=== PATIENT | female | born 1985 | race Caucasian/White ===

== ENCOUNTER 2025-07-23 17:35 | Emergency (ER) | payer OTHER, SELFPAY ==
--- OUTSIDE RECORDS SUMMARY | 2025-07-21 23:51 | XMS_ITS | Encounter Summary ---
Author Organization [facility] 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 Primary Care Provide r Reason for Visit * ReasonCommentsflu like symptomsAbdominal PainUpper abd pain, n/v/d, dx with flu yesterday Encounter Details DateTypeDepartmentCare Team (Latest Contact Info)Dinozgugivo82/27/2025 11:51 PM EST - 07/22/2025 3:29 AM [facility] [address] [place] [address] Reina Ace S, DO [address] [place] [address] Flu (Primary Dx) Discharge Disposition: Home or Self Care Social History Tobacco UseTypesPacks/DayYears UsedDateSmoking Tobacco: FormerCigarettes Tobacco Cessation:Counseling Given: Not Answered Alcohol UseStandard Drinks/WeekCommentsNot Currently0 (1 standard drink = 0.6 oz pure alcohol)AUDIT-CAnswerDate RecordedQ1: How often do you have a drink containing alcohol?Never07/21/2025Q2: How many drinks containing alcohol do you have on a typical day when you are drinking?Patient does not drink07/21/2025Q3: How often do you have six or more drinks on one occasion?Never07/21/2025 Interpersonal Safety Domain Source: IP Abuse ScreeningAnswerDate Recorded Physical cuonrDzjygq69/27/2025Verbal ozenbWgltkn36/27/2025Emotional abuseDenies 07/21/2025Financial tunxrJaotak39/27/2025Sexual gbxnsRyjure85/27/2025 CommentsNoSex and Gender InformationValueDate RecordedSex Assigned at BirthNot on fileLegal RwxOotxtz87/10/2013 6:02 PM ESTGender IdentityNot on fileSexual OrientationNot on filedocumented as of this encounter Last Filed Vital Signs Vital SignReadingTime TakenCommentsBlood Quiqpcso301/8307/22/2025 3:15 AM EST Efifi000907/22/2025 3:15 AM OCIWrqaujxobzz53.8 ??C (98.2 ??F)07/21/2025 11:42 PM ESTRespiratory Utnh759009/22/2024 3:15 AM ESTOxygen Dwlhemytvi38%07/22/2025 3:15 AM ESTInhaled Oxygen Concentration--Injqcy99.1 kg (170 lb)07/21/2025 11:42 PM KDBOxhsgd851.1 cm (5' 5 )07/21/2025 11:42 PM ESTBody Mass Index28.29109/21/2024 11:42 PM ESTdocumented in this encounter Functional Status * Audit-CQuestionAnswerDate of AssessmentAuthorAUDIT-C Tgrxy38809/21/2024 11:44 PM Ac MartellQ1: How often do you have a drink containing alcohol?Never 07/21/2025 11:44 PM Ac MartellQ2: How many drinks containing alcohol do you have on a typical day when you are drinking?Patient does not drink 07/21/2025 11:44 PM Ac MartellQ3: How often do you have six or more drinks on one occasion?Never07/21/2025 11:44 PM Ac Martell documented as of this encounter Discharge Instructions * Attachments The following attachments cannot be sent through Care Everywhere. * Influenza (Ugandan) documented in this encounter Medications at Time of Discharge MedicationSigDispense QuantityRefillsLast FilledStart DateEnd Date phentermine 37.5 MG capsule Take 37.5 mg by mouth every morning. gabapentin (NEURONTIN) 300 MG capsule Take 300 mg by mouth 3 times daily. naproxen (NAPROSYN) 500 MG tablet Take 1 tablet by mouth 2 times daily 60 tablet 3documented as of this encounter Plan of Treatment Not on file documented as of this encounter Procedures Procedure NamePriorityDate/TimeAssociated DiagnosisCommentsCT ABDOMEN PELVIS W IV PTNROFKLQGAM85/28/2025 1:[address] HEAD WO DBJIKJBEYBKJ22/28/2025 1:21 AM EST URINALYSIS WITH REFLEX TO OSQTNPSXZVK54/28/2025 12:45 AM EST MICROSCOPIC FCUGVMKCOTQHWX30/28/2025 12:45 AM EST HCG, SERUM, LJMYZHPBZIKARFD27/28/2025 12:41 AM EST CBC WITH AUTO FCBLYXLCBHBSYRZB20/28/2025 12:32 AM EST COMPREHENSIVE METABOLIC KWHHCKWMJ28/28/2025 12:32 AM EST documented in this encounter Results * CT ABDOMEN PELVIS W IV CONTRAST Additional Contrast? None (07/22/2025 1:21 AM EST)Anatomical RegionLateralityModalityAbdomen, Pelvis, HipComputed Tomography Specimen (Source)Anatomical Location / LateralityCollection Method / Volume Collection TimeReceived Time07/22/2025 2:14 AM EST Impressions 07/22/2025 2:24 AM EST 1. No acute findings in the abdomen or pelvis. Narrative 07/22/2025 2:24 AM EST EXAM: CT ABDOMEN AND PELVIS WITH CONTRAST 07/22/2025 01:21:13 AM TECHNIQUE: CT of the abdomen and pelvis was performed with the administration of intravenous contrast. Multiplanar reformatted images are provided for review. Automated exposure control, iterative reconstruction, and/or weight-based adjustment of the mA/kV was utilized to reduce the radiation dose to as low as reasonably achievable. COMPARISON: None available. CLINICAL HISTORY: Abdominal pain. FINDINGS: LOWER CHEST: No acute abnormality. LIVER: The liver is unremarkable. GALLBLADDER AND BILE DUCTS: Gallbladder is unremarkable. No biliary ductal dilatation. SPLEEN: No acute abnormality. PANCREAS: No acute abnormality. ADRENAL GLANDS: No acute abnormality. KIDNEYS, URETERS AND BLADDER: No stones in the kidneys or ureters. No hydronephrosis. No perinephric or periureteral stranding. Urinary bladder is unremarkable. GI AND BOWEL: Stomach demonstrates no acute abnormality. There is no bowel obstruction. PERITONEUM AND RETROPERITONEUM: No ascites. No free air. VASCULATURE: Aorta is normal in caliber. LYMPH NODES: No lymphadenopathy. REPRODUCTIVE ORGANS: No acute abnormality. BONES AND SOFT TISSUES: No acute osseous abnormality. No focal soft tissue abnormality. Procedure Note Tang Evangelista MD - 07/22/2025 EXAM: CT ABDOMEN AND PELVIS WITH CONTRAST 07/22/2025 01:21:13 AM TECHNIQUE: CT of the abdomen and pelvis was performed with the administration ofintravenous contrast. Multiplanar reformatted images are provided forreview. Automated exposure control, iterative reconstruction, and/orweight-based adjustment of the mA/kV was utilized to reduce the radiation dose to as low as reasonably achievable. COMPARISON: None available. CLINICAL HISTORY: Abdominal pain. FINDINGS: LOWER CHEST: No acute abnormality. LIVER: The liver is unremarkable. GALLBLADDER AND BILE DUCTS: Gallbladder is unremarkable. No biliary ductal dilatation. SPLEEN: No acute abnormality. PANCREAS: No acute abnormality. ADRENAL GLANDS: No acute abnormality. KIDNEYS, URETERS AND BLADDER: No stones in the kidneys or ureters. No hydronephrosis. No perinephric or periureteral stranding. Urinary bladder is unremarkable. GI AND BOWEL: Stomach demonstrates no acute abnormality. There is no bowel obstruction. PERITONEUM AND RETROPERITONEUM: No ascites. No free air. VASCULATURE: Aorta is normal in caliber. LYMPH NODES: No lymphadenopathy. REPRODUCTIVE ORGANS: No acute abnormality. BONES AND SOFT TISSUES: No acute osseous abnormality. No focal soft tissue abnormality. IMPRESSION: 1. No acute findings in the abdomen or pelvis. Authorizing ProviderResult TypeResult StatusTara S Ace [facility] ORDERABLES Final Result * CT Head W/O Contrast (07/22/2025 1:21 AM EST)Anatomical RegionLaterality ModalityHeadComputed TomographySpecimen (Source)Anatomical Location / LateralityCollection Method / VolumeCollection TimeReceived Time07/22/2025 1:48 AM EST Impressions 07/22/2025 1:51 AM EST No acute intracranial abnormality. Narrative 07/22/2025 1:51 AM EST EXAMINATION: CT OF THE HEAD WITHOUT CONTRAST ??07/21/2025 11:04 pm TECHNIQUE: CT of the head was performed without the administration of intravenous contrast. Automated exposure control, iterative reconstruction, and/or weight based adjustment of the mA/kV was utilized to reduce the radiation dose to as low as reasonably achievable. COMPARISON: None. HISTORY: ORDERING SYSTEM PROVIDED HISTORY: headache TECHNOLOGIST PROVIDED HISTORY: Reason for exam:->headache Has a code stroke or stroke alert been called?->No Decision Support Exception - unselect if not a suspected or confirmed emergency medical condition->Emergency Medical Condition (MA) What reading provider will be dictating this exam?->CRC FINDINGS: BRAIN/VENTRICLES: There is no acute intracranial hemorrhage, mass effect or midline shift. ??No abnormal extra-axial fluid collection. ??The reinoso-white differentiation is maintained without evidence of an acute infarct. ??There is no evidence of hydrocephalus. ORBITS: The visualized portion of the orbits demonstrate no acute abnormality. SINUSES: The visualized paranasal sinuses and mastoid air cells demonstrate no acute abnormality. SOFT TISSUES/SKULL: ??No acute abnormality of the visualized skull or soft tissues. Procedure Note Hilario Prado MD - 07/22/2025 EXAMINATION: CT OF THE HEAD WITHOUT CONTRAST 07/21/2025 11:04 pm TECHNIQUE: CT of the head was performed without the administration of intravenous contrast. Automated exposure control, iterative reconstruction, and/orweight based adjustment of the mA/kV was utilized to reduce the radiation dose toas low as reasonably achievable. COMPARISON: None. HISTORY: ORDERING SYSTEM PROVIDED HISTORY: headache TECHNOLOGIST PROVIDED HISTORY: Reason for exam:->headache Has a code stroke or stroke alert been called?->No Decision Support Exception - unselect if not a suspected or confirmed emergency medical condition->Emergency Medical Condition (MA) What reading provider will be dictating this exam?->CRC FINDINGS: BRAIN/VENTRICLES: There is no acute intracranial hemorrhage, mass effector midline shift. No abnormal extra-axial fluid collection. Thegray-white differentiation is maintained without evidence of an acute infarct. Thereis no evidence of hydrocephalus. ORBITS: The visualized portion of the orbits demonstrate no acuteabnormality. SINUSES: The visualized paranasal sinuses and mastoid air cellsdemonstrate no acute abnormality. SOFT TISSUES/SKULL: No acute abnormality of the visualized skull orsoft tissues. IMPRESSION: No acute intracranial abnormality. Authorizing ProviderResult TypeResult StatusTara Adriana Ace DOIMG CT ORDERABLES Final Result * (ABNORMAL) Microscopic Urinalysis (07/22/2025 12:45 AM EST)ComponentValueRef RangeTest MethodAnalysis TimePerformed AtPathologist SignatureWBC, UA6-90 - 5 /HPF07/22/2025 12:52 AM [facility] LABRBC, UA0-20 - 2 /HPF 07/22/2025 12:52 AM [facility] LABEpithelial Cells, UA 20-50/HPF07/22/2025 12:52 AM [facility] LABBacteria, UAFEW (A)Negative /HPF07/22/2025 12:52 AM [facility] LABSpecimen (Source)Anatomical Location / LateralityCollection Method / VolumeCollection TimeReceived Time07/22/2025 12:45 AM EST07/22/2025 12:45 AM EST Narrative Authorizing ProviderResult TypeResult StatusTara Adriana Ace DOURINE ORDERABLES Final ResultPerforming OrganizationAddressCity/State/ZIP CodePhone Number [facility] [address] [place] [address], [facility] [phone] * (ABNORMAL) Urinalysis with Reflex to Culture (07/22/2025 12:45 AM EST) ComponentValueRef RangeTest MethodAnalysis TimePerformed AtPathologist SignatureColor, UAYellowStraw/Cenhjq4407/22/2025 12:50 AM [facility] LABClarity, SBNlsbtNmzmv37/28/2025 12:50 AM [facility] LABGlucose, UrNegativeNegative mg/dL07/22/2025 12:50 AM [facility] LABBilirubin, UjhdeGjxghXtkpvzlm47/28/2025 12:50 AM EST [facility] LABKetones, Urine15(A)Negative mg/dL07/22/2025 12:50 AM [facility] LABSpecific [place], UA1.0251.005 - 1.4375207/22/2025 12:50 AM [facility] LABBlood, Urine OwztfgcbAwptdzwt68/28/2025 12:50 AM [facility] LABpH, Urine6.05.0 - 9.012 12:50 AM [facility] Protein, UATraceNegative mg/dL07/22/2025 12:50 AM [facility] LABUrobilinogen, Urine0.2<2.0 E.U./dL07/22/2025 12:50 AM [facility] LABNitrite, PtyezAnacmzhbCfjdiman94/28/2025 12:50 AM [facility] LABLeukocyte Esterase, UrineTraceNegative 07/22/2025 12:50 AM [facility] LABUrine Reflex to Culture Not Cehntdxqf99/28/2025 12:52 AM [facility] LABSpecimen (Source)Anatomical Location / LateralityCollection Method / VolumeCollection TimeReceived GqltTrcdm70/28/2025 12:45 AM EST07/22/2025 12:45 AM EST Narrative Authorizing ProviderResult TypeResult StatusTara S Ace DOURINE ORDERABLES Final ResultPerforming OrganizationAddressCity/State/ZIP CodePhone Number [facility] [address] [place] [address], [facility] [phone] * HCG Qualitative, Serum (07/22/2025 12:41 AM EST)ComponentValueRef RangeTest MethodAnalysis TimePerformed AtPathologist SignaturePreg, SerumNegative 07/22/2025 12:44 AM [facility] LABSpecimen (Source) Anatomical Location / LateralityCollection Method / VolumeCollection Time Received TimeBloodBLOOD SPECIMEN / Nfpbbto1007/22/2025 12:41 AM EST07/22/2025 12:41 AM EST Narrative Authorizing ProviderResult TypeResult StatusTara S Ace DOCHEMISTRY ORDERABLES Final ResultPerforming OrganizationAddressCity/State/ZIP CodePhone Number [facility] [address] [place] [address], [facility] [phone] * (ABNORMAL) CBC with Auto Differential (07/22/2025 12:32 AM EST)ComponentValue Ref RangeTest MethodAnalysis TimePerformed AtPathologist SignatureWBC9.04.0 - 10.0 K/uL07/22/2025 12:34 AM [facility] LABRBC4.713.93 - 5.22 M/uL07/22/2025 12:34 AM [facility] AZHNwfvyyvrvl10.8 (L)11.2 - 15.7 g/dL07/22/2025 12:34 AM [facility] Qtoheapunf10.1(L)37.0 - 47.0 %07/22/2025 12:34 AM [facility] HFWVBC23.5(L)79.4 - 94.8 fL07/22/2025 12:34 AM [facility] HTKKRJ46.9(L)25.6 - 32.2 pg07/22/2025 12:34 AM [facility] LEIGBKN91.8(L)32.2 - 35.5 %07/22/2025 12:34 AM [facility] YAZYSC24.9(H)11.7 - 14.4 %07/22/2025 12:34 AM [facility] FKVSjfvrouhc253702 - 369 K/uL07/22/2025 12:34 AM [facility] LABSLIDE REVIEWsee below07/22/2025 12:42 AM [facility] LABComment:Slide review agrees with reported resultsNeutrophils %75.7(H)34.0 - 71.1 %07/22/2025 12:34 AM [facility] Immature Granulocytes %0.2%07/22/2025 12:34 AM [facility] LABLymphocytes %17.2%07/22/2025 12:34 AM [facility] Monocytes %6.54.7 - 12.5 %07/22/2025 12:34 AM [facility] LABEosinophils %0.0(L)0.7 - 5.8 %07/22/2025 12:34 AM [facility] LABBasophils %0.40.1 - 1.2 %07/22/2025 12:34 AM [facility] LABNeutrophils Absolute6.8(H)1.6 - 6.1 K/uL07/22/2025 12:34 AM EST [facility] LABImmature Granulocytes #0.0K/uL07/22/2025 12:34 AM [facility] LABLymphocytes Absolute1.61.2 - 3.7 K/uL 07/22/2025 12:34 AM [facility] LABMonocytes Absolute0.60.2 - 0.9 K/uL07/22/2025 12:34 AM [facility] LABEosinophils Absolute0.00.0 - 0.4 K/uL07/22/2025 12:34 AM [facility] LABBasophils Absolute0.00.0 - 0.1 K/uL07/22/2025 12:34 AM [facility] LABSpecimen (Source)Anatomical Location / LateralityCollection Method / VolumeCollection TimeReceived TimeBloodBLOOD SPECIMEN / Unknown 07/22/2025 12:32 AM EST07/22/2025 12:32 AM EST Narrative Authorizing ProviderResult TypeResult StatusTara [facility] DOHEMATOLOGY ORDERABLESEdited Result - FinalPerforming OrganizationAddressCity/State/ZIP Code Phone Number [facility] [address] [facility] [place] [id number], [facility] [phone] * (ABNORMAL) CMP (07/22/2025 12:32 AM EST)ComponentValueRef RangeTest Method Analysis TimePerformed AtPathologist BhhlodzajNmfwnl487527 - 144 mEq/L 07/22/2025 12:36 AM [facility] LABPotassium3.43.4 - 4.9 mEq/L109/22/2024 12:36 AM [facility] DQOTzirszus54862 - 107 mEq/L109/22/2024 12:36 AM [facility] VOVCH25513 - 31 mEq/L 07/22/2025 12:47 AM [facility] LABAnion Ywm265 - 15 mEq/L 07/22/2025 12:47 AM [facility] QLUFvydnsw689(H)70 - 99 mg/dL07/22/2025 12:47 AM [facility] HQXDKH883 - 20 mg/dL 07/22/2025 12:47 AM [facility] LABCreatinine0.700.50 - 0.90 mg/dL07/22/2025 12:47 AM [facility] LABEst, Glom Filt Rate>90.0>6007/22/2025 12:47 AM [facility] LABComment: Pediatric calculator link https://www.kidney.org/professionals/kdoqi/gfr_calculatorped Effective Apr 27, 2022 These results are not intended for use in patients <18 years of age. eGFR results are calculated without a race factor using the 2020 CKD-EPI equation. ??Careful clinical correlation is recommended, particularly when comparing to results calculated using previous equations. The CKD-EPI equation is less accurate in patients with extremes of muscle mass, extra-renal metabolism of creatinine, excessive creatinine ingestion, or following therapy that affects renal tubular secretion. Calcium9.38.5 - 9.9 mg/dL07/22/2025 12:47 AM [facility] Total Protein7.36.3 - 8.0 g/dL07/22/2025 12:47 AM [facility] LABAlbumin4.53.5 - 4.6 g/dL07/22/2025 12:46 AM [facility] LABTotal Bilirubin0.30.2 - 0.7 mg/dL07/22/2025 12:48 AM [facility] LABAlkaline Tedoldebaxj4915 - 130 U/L109/22/2024 12:46 AM [facility] YUHEFV51 - 33 U/L109/22/2024 12:46 AM [facility] WXMUJY976 - 35 U/L109/22/2024 12:47 AM [facility] LABGlobulin2.82.3 - 3.5 g/dL07/22/2025 12:47 AM [facility] LABSpecimen (Source)Anatomical Location / LateralityCollection Method / Volume Collection TimeReceived TimeBloodBLOOD SPECIMEN / Sxtswqg2107/22/2025 12:32 AM EST 07/22/2025 12:32 AM EST Narrative Authorizing ProviderResult TypeResult StatusTara [facility] DOCHEMISTRY ORDERABLES Final ResultPerforming OrganizationAddressCity/State/ZIP CodePhone Number [facility] [address] [place] [id number], [facility] [phone] documented in this encounter Visit Diagnoses Diagnosis Flu- Primary Influenza with other respiratory manifestations documented in this encounter Administered Medications Medication OrderMAR ActionAction DateDoseRateSite diphenhydrAMINE (BENADRYL) injection 50 mg 50 mg, IntraVENous, ONCE, 1 dose, On 07/22/25 at 0030, IV Push at rate not to exceed 25 mg/min. Given07/22/2025 12:51 AM EST50 mg iopamidol (ISOVUE-370) 76 % injection 75 mL 75 mL, IntraVENous, IMG ONCE PRN, 1 dose, Starting on 07/22/25 at 0105, Until 07/22/25 at 0121, Other Given07/22/2025 1:21 AM EST75 mLs ketorolac (TORADOL) injection 30 mg 30 mg, IntraVENous, ONCE, 1 dose, On 07/22/25 at 0151, Do not administer for more than 5 days. Given07/22/2025 1:54 AM EST30 mg LORazepam (ATIVAN) injection 1 mg 1 mg, IntraVENous, ONCE, 1 dose, On 07/22/25 at 0031, Immediately prior to intravenous use, lorazepam Injection must be diluted with at least an equal volume of compatible solution (NS or D5W). Given07/22/2025 12:53 AM EST1 mg metoclopramide (REGLAN) injection 10 mg 10 mg, IntraVENous, ONCE, 1 dose, On 07/22/25 at 0030, IV Push: Max 10 mg over 1-2 minutes. Given07/22/2025 12:53 AM EST10 mg sodium chloride 0.9 % bolus 1,000 mL 1,000 mL (13 mL/kg), IntraVENous, at 1,935.5 mL/hr, Administer over 31 Minutes, ONCE, On 07/22/25 at 0030, For 1 dose New Bag07/22/2025 12:50 AM EST1,000 vAi2399.5 mL/hrdocumented in this encounter Active and Recently Administered Medications Times are shown in EST.Medication Order/ diphenhydrAMINE (BENADRYL) injection 50 mg (COMPLETED) 50 mg, IntraVENous, ONCE, 1 dose, On 07/22/25 at 0030, IV Push at rate not to exceed 25 mg/min. * 0051 (Given - Provider: Neftali Talbot, SUSY) ketorolac (TORADOL) injection 30 mg (COMPLETED) 30 mg, IntraVENous, ONCE, 1 dose, On 07/22/25 at 0151, Do not administer for more than 5 days. * 0154 (Given - Provider: Neftali Talbot, SUSY) LORazepam (ATIVAN) injection 1 mg (COMPLETED) 1 mg, IntraVENous, ONCE, 1 dose, On 07/22/25 at 0031, Immediately prior to intravenous use, lorazepam Injection must be diluted with at least an equal volume of compatible solution (NS or D5W). * 0053 (Given - Provider: Neftali Talbot, RN) metoclopramide (REGLAN) injection 10 mg (COMPLETED) 10 mg, IntraVENous, ONCE, 1 dose, On 07/22/25 at 0030, IV Push: Max 10 mg over 1-2 minutes. * 0053 (Given - Provider: Neftali Talbot, RN) sodium chloride 0.9 % bolus 1,000 mL (COMPLETED) 1,000 mL (13 mL/kg), IntraVENous, at 1,935.5 mL/hr, Administer over 31 Minutes, ONCE, On 07/22/25 at 0030, For 1 dose * 0050 (New Bag - Provider: Neftali Talbot, RN) * 0149 (Stopped - Provider: Neftali Talbot, RN) Medication Order// iopamidol (ISOVUE-370) 76 % injection 75 mL (COMPLETED) 75 mL, IntraVENous, IMG ONCE PRN, 1 dose, Starting on 07/22/25 at 0105, Until 07/22/25 at 0121, Other * 0121 (Given - Provider: Sharonda Valdivia) documented in this encounter Care Teams Team MemberRelationshipSpecialtyStart DateEnd Date Stephon Acuna, 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
[2025-07-23] VITALS (21 sets, daily range): BP systolic 115–142; BP diastolic 74–87; PULSE 73–87; TEMP 36.7–37.1; O2SAT 86–100
[2025-07-23 18:51] LABS: Hematocrit 38.1 % (36.0-48.0); Hemoglobin 11.9 g/dL (12.0-16.0); Immature Granulocytes Abs Auto 0.02 10^3/uL (0.00-0.03); Immature Granulocytes Pct Auto 0.2 % (0.0-0.5); Lymphocytes Absolute Auto 1.1 10^3/uL (1.2-3.8); Mean Corpuscular HGB Conc 31.2 g/dL (29.9-35.2); Mean Corpuscular Hemoglobin 23.5 pg (26.7-34.0); Mean Corpuscular Volume 75.3 fL (81.0-99.0); Platelet Count 334 10^3/uL (150-450); Red Blood Count 5.06 10^6/uL (4.20-5.40); White Blood Count 8.1 10^3/uL (4.0-11.0)
[2025-07-23 18:52] LABS: Glucose Urine UA NEGATIVE (NEGATIVE)
--- OUTSIDE RECORDS SUMMARY | 2025-07-23 19:00 | XMS_ITS | Patient Health Record ---
Author Organization [facility] Address [address] [place] [address] Care Team Providers Care Medical Device Name Role Phone Nasir Garcia Unavailable [phone] Allergies Allergen (clinical drug ingredient) Drug/Non Drug Allergy documented on EMR Reaction Allergy Type Onset Date Status penicillin (uncoded)UnknownAllergyActive Reason For Referral No Information Medications Medication SIG (Take, Route, Frequency, Duration) Notes Start Date End Date Status Naproxen ActiveHYDROcodoneActivegabapentinActiveAdipex-PActive Social History Tobacco Use: Social History Observation Description Date Details (start date - stop date) Never Smoker NA - NA Smoking History Question Answer Notes Smoking Status NonSmoker Problems Problem Type SNOMED Code ICD Code Onset Dates Problem Status W/U Status Risk Notes Problem Acute pain of left knee (M25.562)Activeconfirmed Plan Of Treatment No Information Insurance Providers Payer Name Payer Address Payer Phone Subscriber Number Group Number Insured Name Patient Relationship to Insured Coverage Start Date Coverage End Date [employer] [address] [place] [address] [id number] Genoveva PARSONS - patient is the spouse of the insured Medical (General) History Medical History History ICD Code Anxiety: Yes Drug Allergies: YesSurgical History Surgery Date(Month/Year) MRSA removal 2011 Cholecystectomy 2011 Tubal ligation 2008 ganglion cyst removal
--- OUTSIDE RECORDS SUMMARY | 2025-07-23 19:00 | XMS_ITS | Clinical Summary ---
Author Organization [facility] Address [address] [place] [address] Care Team Providers Care Welcome Wagon Hostess Name Role Phone Unavailable Primary Care Provider Unavailabl e Social History Tobacco UseTypesPacks/DayYears UsedDateSmoking Tobacco: Never Assessed CommentsUnknownSex and Gender InformationValueDate RecordedSex Assigned at Not on fileLegal PbgUycpcx91/15/2023 6:36 PM EDTGender IdentityNot on fileSexual OrientationNot on file Last Filed Vital Signs Vital SignReadingTime TakenCommentsBlood Pressure--Pulse--Temperature-- Respiratory Rate--Oxygen Saturation--Inhaled Oxygen Concentration--Tayisl30.7 kg (180 lb 3.2 oz)10/07/2022 12:00 PM FLFYicbfv478.6 cm (5' 4 )10/07/2022 12:00 PM EDTBody Mass Index30.9310/07/2022 12:00 PM EDT Plan of Treatment Not on file
--- OUTSIDE RECORDS SUMMARY | 2025-07-23 19:00 | XMS_ITS | Clinical Summary ---
Author Organization [facility] Address [address] [place] [address] Phone Care Team Providers Care Porter Head Name Role Phone AcunaStephon otero LEAD MECHANIC-SHEARER OPERATOR Primary Care Provide r Allergies Active AllergyReactionsCriticalityNoted DateCommentsPenicillinsUnknownLow 09/24/2024 Doesn't know reaction, allergy from childhood Medications MedicationSigDispense QuantityRefillsLast FilledStart DateEnd DateStatus gabapentin (Neurontin) 600 mg tablet Take 1 tablet (600 mg) by mouth 3 times a day.Active multivitamin tablet Take 2 tablets by mouth once daily. OTCActive Active Problems ProblemNoted DateDiagnosed DateAcute octnfpaqc78/02/2025 Social History Tobacco UseTypesPacks/DayYears UsedDateSmoking Tobacco: NeverSmokeless Tobacco: Never Tobacco Cessation:Counseling Given: Not Answered [facility] UtilitiesAnswerDate RecordedIn the past 12 months has the [place], [place], or water [place] threatened to shut off services in your home?09/24/2024 Humiliation, Afraid, Rape, and Kick questionnaireAnswerDate RecordedWithin the last year, have you been afraid of your partner or ex-partner?09/24/2024Within the last year, have you been humiliated or emotionally abused in other ways by your partner or ex-partner?09/24/2024Within the last year, have you been kicked, hit, slapped, or otherwise physically hurt by your partner or ex-partner?09/24/2024Within the last year, have you been raped or forced to have any kind of sexual activity by your partner or ex-partner?No09/24/2024 AUDIT-CAnswerDate RecordedQ1: How often do you have a drink containing alcohol? Never09/24/2024Q2: How many drinks containing alcohol do you have on a typical day when you are drinking?Patient does not drink09/24/2024Q3: How often do you have six or more drinks on one occasion?Never09/24/2024Overall Financial Resource Strain (CARDIA)AnswerDate RecordedHow hard is it for you to pay for the very basics like food, housing, medical care, and heating?Not hard at all 09/25/2024PHQ-2AnswerDate RecordedPatient Health Questionnaire-2 Score0 09/24/2024Hunger Vital SignAnswerDate RecordedWithin the past 12 months, you worried that your food would run out before you got the money to buymore.Never true09/24/2024Within the past 12 months, the food you bought just didn't last and you didn't have money to get more.Never true09/24/2024PRAPARE - TransportationAnswerDate RecordedIn the past 12 months, has lack of transportation kept you from medical appointments or from getting medications?No 09/25/2024In the past 12 months, has lack of transportation kept you from meetings, work, or from getting things needed for daily living?No09/25/2024 Housing Stability Vital SignAnswerDate RecordedIn the last 12 months, was there a time when you were not able to pay the mortgage or rent on time?No09/25/2024In the past 12 months, how many times have you moved where you were living?0 09/25/2024t any time in the past 12 months, were you homeless or living in a usp (including now)?No09/25/2024CommentsUnknownSex and Gender InformationValueDate RecordedSex Assigned at BirthNot on fileLegal SexFemale 09/24/2024 3:49 PM ESTGender IdentityNot on fileSexual OrientationNot on file Last Filed Vital Signs Vital SignReadingTime TakenCommentsBlood Cavtddvp689/7103/11/2024 4:45 AM EST Zcwvb927309/27/2024 4:45 AM VAJOoqukausxji57.3 ??C (97.3 ??F)09/27/2024 4:45 AM ESTRespiratory Bayw394209/27/2024 4:45 AM ESTOxygen Bxhdnrqkse09%09/27/2024 4:45 AM ESTInhaled Oxygen Concentration--Bowbly36.9 kg (167 lb 5.3 oz)09/24/2024 8:40 PM TIHQeypbj031.6 cm (5' 4.02 )09/24/2024 8:40 PM ESTBody Mass Index28.71 09/24/2024 8:40 PM EST Plan of Treatment Health MaintenanceDue DateLast DoneCommentsLipid Panel1987Yearly Adult Jlxypuur1987MMR Vaccines (1 of 1 - Standard series)1988Hepatitis A Vaccines (1 of 2 - Risk 2-dose series)2006Hepatitis B Vaccines (1 of 3 - 19+ 3-dose series)2006Cervical Cancer Ywapedlvh07/10/2008HPV/Cotest 2008Pap Smear2008DTaP/Tdap/Td Vaccines (1 - Tdap)2009HPV Vaccines (1 - 3-dose standard series)2014COVID-19 Vaccine (1 - season)2025Influenza Vaccine (#1)2025Diabetes Ohsjrmloe44/05/2028 09/27/2024, 09/26/2024, 09/25/2024, Additional history existsZoster Vaccines (1 of 2)2037HIV RfheloxdkJezlwxshq55/03/2025, 09/25/2024Hepatitis C Screening Wztcagwnj14/03/2025, 09/25/2024HIB VaccinesAged OutNo longer eligible based on patient's age to complete this topicIPV VaccinesAged OutNo longer eligible based on patient's age to complete this topicMeningococcal VaccineAged OutNo longer eligible based on patient's age to complete this topicPneumococcal Vaccine: Pediatrics and At-Risk Adult PatientsAged OutNo longer eligible based on patient's age to complete this topicRotavirus VaccinesAged OutNo longer eligible based on patient's age to complete this topic Procedures Procedure NamePriorityDate/TimeAssociated DiagnosisCommentsBASIC METABOLIC PANEL Uekffis1209/27/2024 8:59 AM EST HIV 1/2 ANTIGEN/ANTIBODY SCREEN WIH REFLEX TO HXQMFJDIMOKIDjourtt58/03/2025 8:43 AM EST HEPATITIS PANEL, FJZEDCvpvzce51/03/2025 8:39 AM EST from Last 3 Months or Most Recently Relevant to Health Maintenance Results * (ABNORMAL) Basic Metabolic Panel (09/27/2024 8:59 AM EST)ComponentValueRef RangeTest MethodAnalysis TimePerformed AtPathologist KexkmuqedLovpaav9696 - 99 mg/dL LAB CHEMISTRY METHOD 09/27/2024 11:46 AM [facility] VZDIawdrd318928 - 145 mmol/L LAB CHEMISTRY METHOD 09/27/2024 11:46 [facility] LABPotassium3.63.5 - 5.3 mmol/L LAB CHEMISTRY METHOD 09/27/2024 11:46 [facility] VKHWjyzlksx53145 - 107 mmol/L LAB CHEMISTRY METHOD 09/27/2024 11:46 [facility] UVEAinbwbsyvnu4694 - 32 mmol/L LAB CHEMISTRY METHOD 09/27/2024 11:46 AM [facility] LABAnion Ope6329 - 20 mmol/L LAB CHEMISTRY METHOD 09/27/2024 11:46 AM [facility] LABUrea Nitrogen5(L)6 - 23 mg/dL LAB CHEMISTRY METHOD 09/27/2024 11:46 AM [facility] LABCreatinine0.570.50 - 1.05 mg/dL LAB CHEMISTRY METHOD 09/27/2024 11:46 AM [facility] LABeGFR>90>60 mL/min/1.73m*2 LAB CHEMISTRY METHOD 09/27/2024 11:46 AM [facility] LABComment: Calculations of estimated GFR are performed using the 2020 CKD-EPI Study Refit equation without therace variable for the IDMS-Traceable creatinine methods. https://jasn.asnjournals.org/content/early/ASN.2266531724 Calcium8.98.6 - 10.6 mg/dL LAB CHEMISTRY METHOD 09/27/2024 11:46 AM [facility] LABSpecimen (Source)Anatomical Location / LateralityCollection Method / VolumeCollection TimeReceived TimeBloodVenous blood specimen / UnknownVenipuncture / Jstwrpo0509/27/2024 8:59 AM EST09/27/2024 10:14 AM EST Narrative Authorizing ProviderResult TypeResult StatusNaepamabeba [facility] BLOOD ORDERABLES Final ResultPerforming OrganizationAddressCity/State/ZIP CodePhone Number [facility] [address] [place], [place] [id number] * HIV 1/2 Antigen/Antibody Screen with Reflex to Confirmation (09/25/2024 8:43 AM EST)ComponentValueRef RangeTest MethodAnalysis TimePerformed AtPathologist SignatureHIV 1/2 Antigen/Antibody Screen with Reflex to Confirmation NonreactiveNonreactive LAB IMMUNOASSAY METHOD 09/25/2024 11:01 AM [facility] LABSpecimen (Source)Anatomical Location / LateralityCollection Method / VolumeCollection TimeReceived TimeBloodVenous blood specimen / UnknownVenipuncture / Kvaszwt4609/25/2024 8:43 AM EST09/25/2024 9:53 AM EST Narrative [facility] - 09/25/2024 11:01 AM EST HIV Ag/Ab screen is performed using the Siemens appCREARllCookapp HIV Ag/Ab Combo assay which detects the presence of HIV p24 antigen as well as antibodies to HIV-1 (Group M and O) and HIV-2. No laboratory evidence of HIV infection. If acute HIV infection is suspected, consider testing for HIV RNA by PCR (viral load). Authorizing ProviderResult TypeResult StatusNaeinabeba [facility] BLOOD ORDERABLES Final ResultPerforming OrganizationAddressCity/State/ZIP CodePhone Number [facility] [address] [place] [phone] * Hepatitis panel, acute (09/25/2024 8:39 AM EST)ComponentValueRef RangeTest MethodAnalysis TimePerformed AtPathologist SignatureHepatitis B Surface AntigenNonreactiveNonreactive LAB IMMUNOASSAY METHOD 09/25/2024 11:10 AM [facility] LABComment: Biotin interference may cause falsely decreased results. Patients taking a Biotin dose of up to 5 mg/day should refrain from taking Biotin for 24 hours before sample collection. Providers may contacttheir local laboratory for further information. Hepatitis A Antibody; IgMNonreactiveNonreactive LAB IMMUNOASSAY METHOD 09/25/2024 11:10 AM [facility] LABComment: Biotin interference may cause falsely decreased results. Patients taking a Biotin dose of up to 5 mg/day should refrain from taking Biotin for 24 hours before sample collection. Providers may contacttheir local laboratory for further information. Hepatitis B Core Antibody; IgMNonreactiveNonreactive LAB IMMUNOASSAY METHOD 09/25/2024 11:10 AM [facility] LABComment: Results from patients taking biotin supplements or receiving high-dose biotin therapy should be interpreted with caution due to possible interference with this test. Providers may contact their locallaboratory for further information. Hepatitis C AnitbodyNonreactiveNonreactive LAB IMMUNOASSAY METHOD 09/25/2024 11:10 AM [facility] LABComment:Results from patients taking biotin supplements or receiving high-dose biotin therapy should be interpreted with caution due to possible interference with this test. Providers may contact their locallaboratory for further information.Specimen (Source)Anatomical Location / LateralityCollection Method / VolumeCollection TimeReceived TimeBloodVenous blood specimen / UnknownVenipuncture / Gfwnpte9909/25/2024 8:39 AM EST09/25/2024 9:48 AM EST Narrative Authorizing ProviderResult TypeResult StatusNaemat Nikolay [facility] BLOOD ORDERABLES Final ResultPerforming OrganizationAddressCity/State/ZIP CodePhone Number [facility] [address] [address] from Last 3 Months or Most Recently Relevant to Health Maintenance Insurance Advance Directives For more information, please contact: [phone] (Available ) * Full Code (Latest Code Status on File) Date ActivatedDate InactivatedComments09/24/2024 8:28 PMQuestionAnswerCommentsPlan of Care:* Code Status Discussion Completed Decision Maker:* Patient Care Teams Team MemberRelationshipSpecialtyStart DateEnd Date Stephon Acuna, MARYCRUZ-SHEARER OPERATOR [address] [place] [address] PCP - GeneralFamily Medicine09/27/24
--- OUTSIDE RECORDS SUMMARY | 2025-07-23 19:00 | XMS_ITS | Encounter Summary ---
Author Organization [facility] Address [address], [address] [place] [address] Care Team Providers Care Shift Supervisor Melting Name Role Phone Stephon Acuna CHANCELLOR - TUBE DRAWING SUPERVISOR Primary Care Provide r Encounter Details DateTypeDepartmentCare Team (Latest Contact Info)Flqjaxjnngp72/27/2025Travel Social History Tobacco UseTypesPacks/DayYears UsedDateSmoking Tobacco: FormerCigarettesAlcohol UseStandard Drinks/WeekCommentsNot Currently0 (1 standard drink = 0.6 oz pure alcohol)AUDIT-CAnswerDate RecordedQ1: How often do you have a drink containing alcohol?Never07/21/2025Q2: How many drinks containing alcohol do you have on a typical day when you are drinking?Patient does not drink07/21/2025Q3: How often do you have six or more drinks on one occasion?Never07/21/2025Interpersonal Safety Domain Source: IP Abuse ScreeningAnswerDate RecordedPhysical abuseDenies 07/21/2025Verbal pubjcRmtizq18/27/2025Emotional jcsxmUaeffg92/27/2025Financial zrsmoXvrjij79/27/2025Sexual glqtkHzshqx29/27/2025CommentsNoSex and Gender InformationValueDate RecordedSex Assigned at BirthNot on fileLegal Sex Sfsekm1609/04/2012 6:02 PM ESTGender IdentityNot on fileSexual OrientationNot on filedocumented as of this encounter Plan of Treatment Not on file documented as of this encounter Visit Diagnoses Not on filedocumented in this encounter Care Teams Team MemberRelationshipSpecialtyStart DateEnd Date Stephon Acuna, MARYCRUZ - TUBE DRAWING SUPERVISOR [address] [place] [id number] PCP - GeneralFamily Nurse Practitioner09/28/22documented as of this encounter
--- OUTSIDE RECORDS SUMMARY | 2025-07-23 19:00 | XMS_ITS | Clinical Summary ---
Author Organization [facility] Address [address], [address] [place] [address] Care Team Providers Care Home Health Care Provider Name Role Phone Kalpana Stephon Perla RESPIRATORY THERAPY TECHNICIAN - CAR INSPECTION AND REPAIR MANAGER Primary Care Provide r Allergies Active AllergyReactionsCriticalityNoted UdiiQuwzfinnPunzcjqgfzz74/19/2013 Childhood reaction Medications MedicationSigDispense QuantityRefillsLast FilledStart DateEnd DateStatus phentermine 37.5 MG capsule Take 37.5 mg by mouth every morning.Active gabapentin (NEURONTIN) 300 MG capsule Take 300 mg by mouth 3 times daily.Active naproxen (NAPROSYN) 500 MG tablet Take 1 tablet by mouth 2 times daily 60 tablet 09/24/2022ctive Encounters DateTypeDepartmentCare UrxgWutwfcqyvsi95/27/2025 11:51 PM EST - 07/22/2025 3:29 AM [facility] [address] [place] [address] Reina Ace, Flu (Primary Dx) Discharge Disposition: Home or Self Care07/21/2025Travelfrom Last 3 Months Social History Tobacco UseTypesPacks/DayYears UsedDateSmoking Tobacco: FormerCigarettes [...] Domain Source: IP Abuse ScreeningAnswerDate Recorded Physical frssrDcugys23/27/2025Verbal mhljdWahawk22/27/2025Emotional abuseDenies 07/21/2025Financial kstjyWglidt77/27/2025Sexual qlfjjFpvczf84/27/2025 CommentsNoSex and Gender InformationValueDate RecordedSex Assigned at BirthNot on fileLegal OogAveyzb99/10/2013 6:02 PM ESTGender IdentityNot on fileSexual OrientationNot on file Last Filed Vital Signs Vital SignReadingTime TakenCommentsBlood Kaaxxaxc571/8307/22/2025 3:15 AM EST Bchqv746907/22/2025 3:15 AM UNJVmhnqfxyzah50.8 ??C (98.2 ??F)07/21/2025 11:42 PM ESTRespiratory Ipex715409/22/2024 3:15 AM ESTOxygen Ydhxpijomv04%07/22/2025 3:15 AM ESTInhaled Oxygen Concentration--Yrwwaf75.1 kg (170 lb)07/21/2025 11:42 PM RZWAgphkj618.1 cm (5' 5 )07/21/2025 11:42 PM ESTBody Mass Index28.29109/21/2024 11:42 PM EST Plan of Treatment Health MaintenanceDue DateLast DoneCommentsDepression Vndfql9403/04/1999Varicella vaccine (1 of 2 - 13+ 2-dose series)2000HIV ocipwp0903/04/2002Hepatitis C okvaob8003/04/2005DTaP/Tdap/Td vaccine (1 - Tdap)2006Hepatitis B vaccine (1 of 3 - 19+ 3-dose series)2006Pap smear2008Cervical cancer screen 2017HPV (without or with Pap)2017Diabetes qfmipc3603/04/2022Flu vaccine (#1)5COVID-19 Vaccine ( season)/04/2022, 09/08/2021, 12/10/2020HPV vaccine (No Doses Required)CompletedHepatitis A vaccineAged OutNo longer eligible based on patient's age to complete this topic Hib vaccineAged OutNo longer eligible based on patient's age to complete this topicMeningococcal (ACWY) vaccineAged OutNo longer eligible based on patient's age to complete this topicMeningococcal B vaccineAged OutNo longer eligible based on patient's age to complete this topicPneumococcal 0-49 years VaccineAged OutNo longer eligible based on patient's age to complete this topicPolio vaccine Aged OutNo longer eligible based on patient's age to complete this topic Procedures Procedure NamePriorityDate/TimeAssociated DiagnosisCommentsCT ABDOMEN PELVIS W IV UTFPIRDJCNGA20/28/2025 1:[address] HEAD WO SKOEWKQQVAGX44/28/2025 1:21 AM EST MICROSCOPIC SSUHDVCCDPCBJK41/28/2025 12:45 AM EST URINALYSIS WITH REFLEX TO KIXFGLTUHTJ03/28/2025 12:45 AM EST HCG, SERUM, JSKMSDLXLDUNYRJ34/28/2025 12:41 AM EST CBC WITH AUTO GQFHDRHHYDOYXFBS02/28/2025 12:32 AM EST COMPREHENSIVE METABOLIC YBCYWKKQE60/28/2025 12:32 AM EST from Last 3 Months Results * CT ABDOMEN PELVIS W IV [...] abdomen or pelvis. Authorizing ProviderResult TypeResult StatusTara Adriana Ace [facility] CT ORDERABLES Final Result * CT Head [...] acute intracranial abnormality. Authorizing ProviderResult TypeResult StatusTara [facility] CT ORDERABLES Final Result * (ABNORMAL) Urinalysis with Reflex to Culture (07/22/2025 12:45 AM EST) ComponentValueRef RangeTest MethodAnalysis TimePerformed AtPathologist SignatureColor, UAYellowStraw/Rlwyoq4607/22/2025 12:50 AM [facility] LABClarity, MVMtcbdWmlnc95/28/2025 12:50 AM [facility] LABGlucose, UrNegativeNegative mg/dL07/22/2025 12:50 AM [facility] LABBilirubin, XdaqrSoxklPgjikopu31/28/2025 12:50 AM [facility] LABKetones, Urine15(A)Negative mg/dL07/22/2025 12:50 AM [facility] LABSpecific [place], UA1.0251.005 - 1.1370707/22/2025 12:50 AM [facility] LABBlood, Urine BjyjrewoHkbjtsou67/28/2025 12:50 AM [facility] LABpH, Urine6.05.0 - 9.012 12:50 AM [facility] Protein, UATraceNegative mg/dL07/22/2025 12:50 AM [facility] LABUrobilinogen, Urine0.2<2.0 E.U./dL07/22/2025 12:50 AM [facility] LABNitrite, UvzbgJaobkqysBcjievbb64/28/2025 12:50 AM EST [facility] LABLeukocyte Esterase, UrineTraceNegative 07/22/2025 12:50 AM [facility] LABUrine Reflex to Culture Not Xbdfxjrbv75/28/2025 12:52 AM [facility] LABSpecimen (Source)Anatomical Location / LateralityCollection Method / VolumeCollection TimeReceived SgoxWczzx22/28/2025 12:45 AM EST07/22/2025 12:45 AM EST Narrative Authorizing ProviderResult TypeResult StatusTara S Ace [facility] ORDERABLES Final ResultPerforming OrganizationAddressCity/State/ZIP CodePhone Number [facility] [address] [place] [address], [facility] [phone] * (ABNORMAL) Microscopic Urinalysis (07/22/2025 12:45 AM EST)ComponentValueRef RangeTest MethodAnalysis TimePerformed AtPathologist SignatureWBC, UA6-90 - 5 /HPF07/22/2025 12:52 AM [facility] LABRBC, UA0-20 - 2 /HPF 07/22/2025 12:52 AM [facility] LABEpithelial Cells, UA 20-50/HPF07/22/2025 12:52 AM [facility] LABBacteria, UAFEW (A)Negative /HPF07/22/2025 12:52 AM [facility] LABSpecimen (Source)Anatomical Location / LateralityCollection Method / VolumeCollection TimeReceived Time07/22/2025 12:45 AM EST07/22/2025 12:45 AM EST Narrative Authorizing ProviderResult TypeResult StatusTara S Cae [facility] ORDERABLES Final ResultPerforming OrganizationAddressCity/State/ZIP CodePhone Number [facility] [address] [place] [address], [facility] [phone] * HCG Qualitative, Serum (07/22/2025 12:41 AM EST)ComponentValueRef RangeTest MethodAnalysis TimePerformed AtPathologist SignaturePreg, SerumNegative 07/22/2025 12:44 AM [facility] LABSpecimen (Source) Anatomical Location / LateralityCollection Method / VolumeCollection Time Received TimeBloodBLOOD SPECIMEN / Bqmkama1207/22/2025 12:41 AM EST07/22/2025 12:41 AM EST Narrative Authorizing ProviderResult TypeResult StatusTara Adriana Ace DOCHEMISTRY ORDERABLES Final ResultPerforming OrganizationAddressCity/State/ZIP CodePhone Number [facility] [address] [place] [id number], [facility] [phone] * (ABNORMAL) CBC with Auto Differential (07/22/2025 12:32 AM EST)ComponentValue Ref RangeTest MethodAnalysis TimePerformed AtPathologist SignatureWBC9.04.0 - 10.0 K/uL07/22/2025 12:34 AM [facility] LABRBC4.713.93 - 5.22 M/uL07/22/2025 12:34 AM [facility] VDDTxwuoiidsm28.8 (L)11.2 - 15.7 g/dL07/22/2025 12:34 AM [facility] Ftexxqctwa34.1(L)37.0 - 47.0 %07/22/2025 12:34 AM [facility] XQLLWF91.5(L)79.4 - 94.8 fL07/22/2025 12:34 AM [facility] PNLISJ47.9(L)25.6 - 32.2 pg07/22/2025 12:34 AM [facility] ISQBUFG30.8(L)32.2 - 35.5 %07/22/2025 12:34 AM [facility] UNNPQL91.9(H)11.7 - 14.4 %07/22/2025 12:34 AM [facility] ZDWQdfjbytbf370867 - 369 K/uL07/22/2025 12:34 AM [facility] LABSLIDE REVIEWsee below07/22/2025 12:42 AM [facility] LABComment:Slide review agrees with reported resultsNeutrophils %75.7(H)34.0 - 71.1 %07/22/2025 12:34 AM [facility] Immature Granulocytes %0.2%07/22/2025 12:34 AM [facility] LABLymphocytes %17.2%07/22/2025 12:34 AM [facility] Monocytes %6.54.7 - 12.5 %07/22/2025 12:34 AM [facility] LABEosinophils %0.0(L)0.7 - 5.8 %07/22/2025 12:34 AM [facility] LABBasophils %0.40.1 - 1.2 %07/22/2025 12:34 AM [facility] LABNeutrophils Absolute6.8(H)1.6 - 6.1 K/uL07/22/2025 12:34 AM EST [facility] LABImmature Granulocytes #0.0K/uL07/22/2025 12:34 AM [facility] LABLymphocytes Absolute1.61.2 - 3.7 K/uL 07/22/2025 12:34 AM [facility] LABMonocytes Absolute0.60.2 - 0.9 K/uL07/22/2025 12:34 AM [facility] LABEosinophils Absolute0.00.0 - 0.4 K/uL07/22/2025 12:34 AM [facility] LABBasophils Absolute0.00.0 - 0.1 K/uL07/22/2025 12:34 AM [facility] LABSpecimen (Source)Anatomical Location / LateralityCollection Method / VolumeCollection TimeReceived TimeBloodBLOOD SPECIMEN / Unknown 07/22/2025 12:32 AM EST07/22/2025 12:32 AM EST Narrative Authorizing ProviderResult TypeResult StatusTara S Ace DOHEMATOLOGY ORDERABLESEdited Result - FinalPerforming OrganizationAddressCity/State/ZIP Code Phone Number [facility] [address] [place] [id number] [phone] * (ABNORMAL) CMP (07/22/2025 12:32 AM EST)ComponentValueRef RangeTest Method Analysis TimePerformed AtPathologist KggloruvbFdoprw615753 - 144 mEq/L 07/22/2025 12:36 AM [facility] LABPotassium3.43.4 - 4.9 mEq/L109/22/2024 12:36 AM [facility] ITPXdaundik28500 - 107 mEq/L109/22/2024 12:36 AM [facility] KTDDS13717 - 31 mEq/L 07/22/2025 12:47 AM [facility] LABAnion Sny376 - 15 mEq/L 07/22/2025 12:47 AM [facility] LZELvqiuye032(H)70 - 99 mg/dL07/22/2025 12:47 AM [facility] WYRXEH978 - 20 mg/dL 07/22/2025 12:47 AM [facility] LABCreatinine0.700.50 - 0.90 mg/dL07/22/2025 12:47 AM [facility] LABEst, Glom Filt Rate>90.0>6007/22/2025 12:47 AM [facility] LABComment: Pediatric calculator link https://www.kidney.org/professionals/kdoqi/gfr_calculatorped Effective [...] secretion. Calcium9.38.5 - 9.9 mg/dL07/22/2025 12:47 AM [facility] Total Protein7.36.3 - 8.0 g/dL07/22/2025 12:47 AM [facility] LABAlbumin4.53.5 - 4.6 g/dL07/22/2025 12:46 AM [facility] LABTotal Bilirubin0.30.2 - 0.7 mg/dL07/22/2025 12:48 AM [facility] LABAlkaline Zyefrguworr8732 - 130 U/L109/22/2024 12:46 AM [facility] GWCOBT53 - 33 U/L109/22/2024 12:46 AM [facility] EYZEHG147 - 35 U/L109/22/2024 12:47 AM [facility] LABGlobulin2.82.3 - 3.5 g/dL07/22/2025 12:47 AM [facility] LABSpecimen (Source)Anatomical Location / LateralityCollection Method / Volume Collection TimeReceived TimeBloodBLOOD SPECIMEN / Pmmrsti3307/22/2025 12:32 AM EST 07/22/2025 12:32 AM EST Narrative Authorizing ProviderResult TypeResult StatusTara S Ace DOCHEMISTRY ORDERABLES Final ResultPerforming OrganizationAddressCity/State/ZIP CodePhone Number [facility] [address] [place] [address], [facility] [phone] from Last 3 Months Care Teams Team MemberRelationshipSpecialtyStart DateEnd Date Stephon Acuna, RESPIRATORY THERAPY TECHNICIAN - CAR INSPECTION AND REPAIR MANAGER [address] [place] [address] [place] [address] PCP - GeneralFamily Nurse Practitioner09/28/22
--- OUTSIDE RECORDS SUMMARY | 2025-07-23 19:01 | XMS_ITS | Clinical Summary ---
Author Organization [facility] Address [address] [place] [id number] Care Team Providers Care Train Inspector Name Role Phone Stehpon Acuna REHABILITATION LIAISON-RESIDENTIAL SERVICE TECHNICIAN Primary Care Provider Allergies Active AllergyReactionsCriticalityNoted PxhqOhmzlbqbEwycwppuaAeaz24/23/2024 AotmwwyytizZzyqyb Other reaction(s): anaphylaxsis, Unknown, Unknown Childhood reaction Medications MedicationSigDispense QuantityRefillsLast FilledStart DateEnd DateStatus Multiple Vitamins-Minerals (WOMENS DAILY FORM/FA/CA/FE PO) Take by mouth.Active naloxone 4 MG/0.1ML Indications:Hx of opioid abuse1 spray by Nasal route once for 1 dose. [place] into the nose as directed. Call 911. If no response in 2 minutes use a new nasal spray in other nostril. Repeat until help arrives. 1 Each 12/24/2022ctive gabapentin 600 MG tablet Indications:Chronic bilateral low back pain without sciatica,History of back surgeryTake 1 tablet by mouth 3 times daily. 90 tablet ctive SUMAtriptan 25 MG tablet Indications:Hx of migraine headachesTake 1 tablet by mouth As directed. May repeat in 2 hr, MAX 200MG/24HR 9 tablet 06/26/2024ctive oxyCODONE-acetaminophen (Percocet) 7.5-325 MG tablet Indications:Internal derangement of left knee,Postoperative pain1/2 tab 3 x per day as needed. 45 tablet 06/29/2024ctive Active Problems ProblemNoted DateDiagnosed DateBleeding from genital tract during 12/20/20234733Grivhqmdqx16/27/2024urrent ccwiga6712/20/2023 Overview (12/20/2023): Added secondary to documentation in Social History. Female pelvic pain12/20/2023Ganglion cyst12/20/2023nkle pain12/20/2023 Overview (12/20/2023): will get x-ray to evaluate Urinary tract raamzktsv95/27/2024Encounter for long-term opiate analgesic use 01/12/2023Hx of opioid abuse3Postoperative pain3Knee joint cyst, left10/26/2022 Overview (12/20/2023): Added automatically from request for surgery [id number] Bipolar affective disorder, current episode manic7905Jowrxdppd66/10/2023 Chronic bilateral low back pain without xkypzifa80/20/2022History of back nggvpok07/20/2022Primary xkjisvdq85/20/2022Obesity (BMI 30.0-34.9)12/02/2021 Hefnsf341Sprain of unspecified ligament of unspecified ankle, initial qdaigiluh09/25/2019Opioid dependence, yfedeaqxuynnp21/16/9682Qtwvkavcq27/04/2013 Hand pain06/28/20133301Qbvpsyjfpre11/12/2005Anxiety Encounters DateTypeDepartmentCare BjpwTzvvmapulub26/29/2025[address] [address] Carlyn Owen LPN Flank Painfrom Last 3 Months Family History Medical HistoryRelationNameCommentsDiabetesFatherMyocardial InfarctionFather Other - SpecifyHalf Brother 2s/p MVAThyroid CancerMotherCancerPaternal Grandfathereither prostate or colonBreast CancerPaternal Grandmotherwith brain metsRelationNameStatusCommentsDaughterAliveFatherAliveHalf Brother 1AliveHalf Brother 2DeceasedHalf Brother 3AliveHalf SisterAliveMaternal GrandfatherAlive Maternal GrandmotherDeceasedMotherAlivePaternal GrandfatherDeceasedPaternal GrandmotherDeceasedSonAlive Social History Tobacco UseTypesPacks/DayYears UsedDateSmoking Tobacco: NeverSmokeless Tobacco: Never Tobacco Cessation:Counseling Given: Not Answered Comments:PT CURRENTLY VAPES Alcohol UseStandard Drinks/WeekCommentsNot Currently0 (1 standard drink = 0.6 oz pure alcohol)DepressionAnswerDate RecordedPHQ-9 Total Score (Interpretation of Total Score 1-4 = Minimal depression; 5-9 = Mild depression; 10-14 = Moderate depression; 15-19 = Moderately severe depression)3CommentsNo Sex and Gender InformationValueDate RecordedSex Assigned at BirthNot on file Legal KmlXubtji44/13/2019 5:45 PM EDTGender IdentityNot on fileSexual OrientationNot on file Last Filed Vital Signs Vital SignReadingTime TakenCommentsBlood Pookzdzo925/8206/29/2024 9:56 AM EST Qpzmt726306/29/2024 9:56 AM LSQCxmsilnkzao90.5 ??C (97.7 ??F)06/29/2024 9:56 AM ESTRespiratory Esqs511804/03/2024 11:07 AM EDTOxygen Ngixeoukrf793%06/29/2024 9:56 AM ESTInhaled Oxygen Concentration--Zcnxwi50.7 kg (173 lb 9.6 oz)06/29/2024 9:56 AM PFDImtwtj881.6 cm (5' 4 )06/29/2024 9:56 AM ESTBody Mass Index29.8108/30/2023 9:56 AM EST Plan of Treatment Health MaintenanceDue DateLast DoneCommentsHEPATITIS C VIRUS BNOOWRQZF1987 OFMTIQK03 1987HIV SCREENING VJFGRYXXAA57/10/2002HEP B VACCINE (1 of 3 - 19+ 3-dose series)2006TDAP (ADULT)2006CERVICAL CANCER SCREENING ZXMSCPJIFS48/10/2008HPV VACCINE (1 - 3-dose SCDM series)2014COVID-19 VACCINE (2024- season), 09/08/2021, 12/10/2020 INFLUENZA VACCINE (#1)2025PNEUMOCOCCAL VACCINE SERIESAged OutNo longer eligible based on patient's age to complete this topic Insurance Care Teams Team MemberRelationshipSpecialtyStart DateEnd Date Stephon Acuna, MARYCRUZ-RESIDENTIAL SERVICE TECHNICIAN PCP - GeneralNurse Practitioner - [facility]12/02/21
--- OUTSIDE RECORDS SUMMARY | 2025-07-23 19:01 | XMS_ITS | Encounter Summary ---
Author Organization [facility] Address [address] [place] [address] Care Team Providers Care Welding Machine Operator Friction Name Role Phone Stephon Acuna METAL FLOW COORDINATOR-RELEASE SPECIALIST Primary Care Provider Reason for Visit * ReasonOnset DateCommentsFlank Pain07/23/2025 Encounter Details DateTypeDepartmentCare Team (Latest Contact Info)Hfedflfujxq30/29/2025Telephone [address] [address] Carlyn Owen LPN Flank Pain Social History Tobacco UseTypesPacks/DayYears UsedDateSmoking Tobacco: NeverSmokeless Tobacco: Never Comments:PT CURRENTLY VAPES Alcohol UseStandard Drinks/WeekCommentsNot Currently0 (1 standard drink = 0.6 oz pure alcohol)DepressionAnswerDate RecordedPHQ-9 Total Score (Interpretation of Total Score 1-4 = Minimal depression; 5-9 = Mild depression; 10-14 = Moderate depression; 15-19 = Moderately severe depression)3CommentsNo Sex and Gender InformationValueDate RecordedSex Assigned at BirthNot on file Legal RcxYaaboi83/13/2019 5:45 PM EDTGender IdentityNot on fileSexual OrientationNot on filedocumented as of this encounter Miscellaneous Notes * Telephone Encounter - Carlyn Owen LPN - 07/23/2025 1:32 PM EST Patient contacted office stating that she is having continuous flank pain since Wednesday. Suzanne transferred call to this nurse and I spoke directly to patient on the phone. Patient states that she has been having flank pain since Wednesday. Patient states that she is having flu like symptoms too: fever, chills, nausea, vomiting, diarrhea,hematuria, malaise, body aches, and inability to keep food and liquids down. Patient states she went to the [facility] ED yesterday and the day before yesterday for treatment. Patient states that the medication that the ED prescribed is not effective with her symptoms. Patient states that the ED told her to follow up with her PCP for further treatment. This nurse spoke to Stephon about patient's current status. Per Stephon, patient will need to return to the ED for evaluation due to her current symptoms. Patient verbalized understanding. documented in this encounter Plan of Treatment Not on file documented as of this encounter Visit Diagnoses Not on filedocumented in this encounter Additional Health Concerns AssessmentNoted TimePHQ-9 Depression Total Score: 2:06 PM EDT documented as of this encounter Care Teams Team MemberRelationshipSpecialtyStart DateEnd Date Stephon Acuna, METAL FLOW COORDINATOR-RELEASE SPECIALIST PCP - GeneralNurse Practitioner - Family12/02/21documented as of this encounter
[2025-07-23 19:03] LABS: Cast Seen? NONE SEEN #/LPF (NONE SEEN); Crystals Seen? None Seen #/HPF (None Seen); Urine Culture Indicated YES-FRMC
[2025-07-23 19:07] LABS: Alanine Aminotransferase 17 U/L (14-59); Albumin Globulin Ratio 1.1; Albumin Level 4.1 g/dL (3.4-5.0); Alkaline Phosphatase 92 U/L (46-116); Anion Gap 15.2; Aspartate Amino Transferase 18 U/L (15-37); Blood Urea Nitrogen 13.0 mg/dL (7.0-18.0); Calcium 9.1 mg/dL (8.5-10.1); Carbon Dioxide 25.2 mmol/L (21.0-32.0); Chloride 103 mmol/L (98-107); Estimated GFR (African America >60 (>=60 mL/min/1.73m^2); Estimated GFR (Non-African Ame >60 (>=60 mL/min/1.73m^2); Globulin 3.7 g/dL; Glucose 94 mg/dL (74-106); Lipase 26.0 U/L (16.0-77.0); Magnesium 1.9 mg/dL (1.8-2.4); Potassium 3.4 mmol/L (3.5-5.1); Sodium 140 mmol/L (136-145); Total Protein 7.8 g/dL (6.4-8.2)
[2025-07-23] MEDS: 0.9 % SODIUM CHLORIDE 2,000 ML 999 ML IV (19:18)
[2025-07-23] MEDS: FENTANYL CITRATE/PF 100 MCG/2 ML VIAL 50 MCG IV (19:19)
--- NOTE | 2025-07-23 21:02 | ED.ABDPAIN1 ---
HPI - Abdominal Pain General Chief Complaint: Abdominal Pain Stated Complaint: abd pain Time Seen by Provider: 07/23/25 17:39 Source: patient Mode of arrival: walk-in Limitations: no limitations History of Present Illness HPI narrative: 40-year-old female presents to the emergency department with complaint of right upper abdominal, flank, back pain. Has not been feeling well for over a week. Was recent diagnosed with influenza A. States she has had nausea, vomiting, diarrhea as well. History of cholecystectomy. Was evaluated at [facility] of the and where she had CT scans performed on both days without concerning findings. She was placed on Cipro and oxycodone. Has not been taking the oxycodone as she feels it has not been helping. 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 Denies any known fevers, runny nose, cough, congestion. Quality:?Sharp Severity:?moderate Timing:?as above Context: Normal setting and activity? Modifying factors:?Worse with palpation Associated symptoms: as above Related Data Previous Rx's ?Medication ?Instructions ?Recorded diphenoxylate-atropine 2.5 1 tab PO TID PRN diarhea #10 tabs 07/23/25 mg-0.025 mg tablet (Lomotil) ondansetron 4 mg disintegrating 4 mg PO Q8H PRN nausea and 07/23/25 tablet vomiting #14 tabs tizanidine 4 mg capsule 4 mg PO TID PRN muscle spasticity 07/23/25 #14 caps Allergies Allergy/AdvReac Type Severity Reaction Status Date / Time Penicillins Allergy Severe Rash Verified 07/23/25 17:40 ketorolac (From Toradol) Allergy Unknown Unknown Verified 07/23/25 17:40 Review of Systems ROS Narrative CONST: Denies any fever, chills RESP: Denies any shortness of breath CV: Denies any chest pain GI: +abd pain.? + nausea, vomiting, diarrhea. : + flank pain. Denies dysuria MS: + right mid back pain. SKIN: Denies any color change, rash NEURO: Denies numbness, weakness PSYCHIATRIC: Denies confusion, agitation PFSH PFSH Social History Little interest or pleasure in doing things: not at all Feeling down, depressed, or hopeless: not at all Exam Narrative Exam Narrative: Vital signs reviewed Nurses notes noted CONST: Nontoxic, ill appearing, well nourished, in no distress.? No diaphoresis.?? HENT: normocephalic, atraumatic, moist mucous membrane, no abnormalities of the nose noted, hearing normal EYES: normal appearing conjunctiva, no apparent discharge bilat NECK: normal appearance CV: normal rate, regular rhythm, no murmur RESP: normal effort, speaking in complete sentences. Lung sounds clear and equal bilat.? No wheezes, rales, rhonchi GI: soft, no distension, +tenderness: RUQ, right flank, right mid back pain. No rebound or guarding. : +right CVA tenderness MS: She has point tenderness to muscle that feels like it is in spasm to her right lower back. SKIN: no pallor. No rash, concerning findings that would suggest shingles. NEURO: A&Ox 3, no focal findings PSYCH: normal mood, affect Constitutional Vital Signs, click to edit/add: Last Vital Signs Temp 98.8 F 07/23/25 19:23 Pulse 78 07/23/25 19:23 Resp 18 07/23/25 19:23 BP 134/85 07/23/25 19:23 Pulse Ox 99 07/23/25 19:23 O2 Del Method Room Air 07/23/25 17:40 Course Reevaluation(s) Reevaluation #1: States still not feeling well. Mostly concerned how miserable her diarrhea is. Ordered new meds. Time: 21:02 Reevaluation #2: Some improvement. Fluids are done. Patient states she would just like to go home. Treated further with medications as noted in list. Discussed with patient results, plan, and disposition. She is agreeable. Time: 22:01 Vital Signs Vital signs: Vital Signs Temperature 98.6 F 07/23/25 17:40 Pulse Rate 87 07/23/25 17:40 Respiratory Rate 20 07/23/25 17:40 Blood Pressure 137/86 07/23/25 17:40 Pulse Oximetry 99 07/23/25 17:40 Oxygen Delivery Method Room Air 07/23/25 17:40 Temperature 98.8 F 07/23/25 19:23 Pulse Rate 78 07/23/25 19:23 Respiratory Rate 18 07/23/25 19:23 Blood Pressure 134/85 07/23/25 19:23 Pulse Oximetry 99 07/23/25 19:23 Oxygen Delivery Method Room Air 07/23/25 17:40 MDM - Abdominal Pain MDM Narrative Medical decision making narrative: This is a pleasant 40-year-old female who presents to the emergency department for evaluation of abdominal pain, nausea, vomiting, and diarrhea for over a week. On arrival, afebrile, vital signs are stable Exam, nontoxic, ill, uncomfortable appearing patient in no distress. Reviewed prior notes and diagnostic testing from [facility]. Notes were from the . CT results were from the and . CT, per radiology reports revealed no acute findings IV access obtained, labs are drawn and sent to the lab. She was given 2 L of fluids, fentanyl, Zofran. Labs reveal no leukocytosis. H&H appears stable. No thrombocytopenia, electrolyte imbalance, renal impairment. Glucose 94. Magnesium 1.9. LFTs unremarkable. test was negative. Urinalysis appears contaminated, but no other secondary findings concerning for infection. She is on Cipro. Overall, workup is reassuring. She does have point tenderness to muscle body in her lower back suggesting spasm, etiology of this pain. She had history of cholecystectomy. CT scans have not shown any concerning findings over the past 3 days. Has had 2. She was hydrated, given symptom relief during ED course. Favor nausea, vomiting, diarrhea, right upper quadrant, flank pain. Acute abdomen less likely based on exam History and Record Review Additional records reviewed: ER visit notes from [facility] on 07/14/[address] report from 07/21/2025 IV Fluids:hydration/inability to tolerate PO Diagnostic testing considered but not performed: CT. Patient had 2 of them over the past 3 days Disposition ? The patient was discharged. Prescriptions sent to pharmacy: Tizanidine, Lomotil, Zofran Plan: Patient will be discharged to home.? Condition at time of disposition: stable, improved.? Advised to follow up with primary provider. Advised to return for any worsening and/or development of new, concerning signs or symptoms PLEASE NOTE: Portions of the medical record may have been produced using electronic supervisor riveting and may contain errors with respect to translation of words which may not have been identified prior to finalization of the chart. Medical Records Attestation: I reviewed the patient's medical records. Lab Data Attestation: I reviewed the patient's lab results. Labs: Lab Results 07/23/25 07/23/25 Range/Units 18:10 18:34 WBC 8.1 (4.0-11.0) 10^3/uL RBC 5.06 (4.20-5.40) 10^6/uL Hgb 11.9 L (12.0-16.0) g/dL Hct 38.1 (36.0-48.0) % MCV 75.3 L (81.0-99.0) fL MCH 23.5 L (26.7-34.0) pg MCHC 31.2 (29.9-35.2) g/dL RDW 15.0 (11.0-15.0) % Plt Count 334 (150-450) 10^3/uL MPV 9.7 (9.5-13.5) fL Neut % (Auto) 78.9 H (43.0-75.0) % Lymph % (Auto) 14.1 L (20.5-60.0) % Reynolds % (Auto) 6.3 (1.7-12.0) % Eos % (Auto) 0.0 L (0.9-7.0) % Baso % (Auto) 0.5 (0.2-2.0) % Neut # (Auto) 6.4 (1.4-6.5) 10^3/uL Lymph # (Auto) 1.1 L (1.2-3.8) 10^3/uL Reynolds # (Auto) 0.5 (0.3-0.8) 10^3/uL Eos # (Auto) 0.0 (0.0-0.7) 10^3/uL Baso # (Auto) 0.0 (0.0-0.1) 10^3/uL Abs Immat Gran (auto) 0.02 (0.00-0.03) 10^3/uL Imm/Tot Granulo (auto) 0.2 (0.0-0.5) % Sodium 140 (136-145) mmol/L Potassium 3.4 L (3.5-5.1) mmol/L Chloride 103 (98-107) mmol/L Carbon Dioxide 25.2 (21.0-32.0) mmol/L Anion Gap 15.2 BUN 13.0 (7.0-18.0) mg/dL Creatinine 0.71 (0.55-1.02) mg/dL Est GFR ( Amer) >60 (>=60 mL/min/1.73m^2) Est GFR (Non-Af Amer) >60 (>=60 mL/min/1.73m^2) BUN/Creatinine Ratio 18.3 Glucose 94 (74-106) mg/dL Calcium 9.1 (8.5-10.1) mg/dL Magnesium 1.9 (1.8-2.4) mg/dL Total Bilirubin 0.3 (0.2-1.0) mg/dL AST 18 (15-37) U/L ALT 17 (14-59) U/L Alkaline Phosphatase 92 (46-116) U/L Total Protein 7.8 (6.4-8.2) g/dL Albumin 4.1 (3.4-5.0) g/dL Globulin 3.7 g/dL Albumin/Globulin Ratio 1.1 Lipase 26.0 (16.0-77.0) U/L Serum HCG, Qual Negative (NEGATIVE) Urine Color Lt. yellow (YELLOW) Urine Clarity Clear (CLEAR) Urine pH 7.0 (5.0-9.0) Ur Specific [place] 1.020 (1.005-1.025) Urine Protein Trace (NEG/TRACE) mg/dL Urine Glucose (UA) Negative (NEGATIVE) mg/dL Urine Ketones Trace A (NEGATIVE) mg/dL Urine Occult Blood Small A (NEGATIVE) Urine Nitrite Negative (NEGATIVE) Urine Bilirubin Negative (NEGATIVE) Urine Urobilinogen 1.0 (0.2-1.0) EU/dL Ur Leukocyte Esterase Small A (NEGATIVE) Urine RBC None seen (0-2) #/HPF Urine WBC 2-5 A (NONE SEEN) #/HPF Ur Squamous Epith Cells Many A (NONE/RARE) #/LPF Urine Crystals None seen (None Seen) #/HPF Urine Bacteria Large A (NONE SEEN) #/HPF Urine Casts None seen (NONE SEEN) #/LPF Urine Mucus None seen (NONE SEEN) Ur Culture Indicated? Yes-[facility] [place] Discharge Plan Discharge Chief Complaint: Abdominal Pain Clinical Impression: Abdominal pain, RUQ, Acute right flank pain Acute right-sided low back pain Qualifiers: Sciatica presence: without sciatica Qualified Code(s): M54.50 - Low back pain, unspecified Patient Disposition: Home, Self-Care Time of Disposition Decision: 21:52 Condition: Good Mode of Transportation: Private Vehicle Prescriptions / Home Meds: New diphenoxylate-atropine [Lomotil] 2.5-0.025 mg tablet 1 tab PO TID PRN (Reason: diarhea) Qty: 10 0RF tizanidine 4 mg capsule 4 mg PO TID PRN (Reason: muscle spasticity) Qty: 14 0RF ondansetron 4 mg tablet,disintegrating 4 mg PO Q8H PRN (Reason: nausea and vomiting) Qty: 14 0RF Print Language: Kittitian Instructions: Dehydration (ED), Acute Nausea and Vomiting (ED), Acute Diarrhea (ED), Abdominal Pain (ED), Muscle Spasm (ED) Referrals: Regino Bynum MD [Physician, Family Practice] - 1 week
[2025-07-23] MEDS: HYOSCYAMINE SULFATE 0.125 MG TAB.SUBL SL (21:10)
[2025-07-23] MEDS: DIPHENOXYLATE HCL 2.5 MG/ATROPINE 0.025 MG TABLET 1 TAB PO (21:21)
[2025-07-23] MEDS: TIZANIDINE HCL 4 MG TABLET PO (22:07)
--- NOTE | 2025-07-23 22:29 | PC.NURSE ---
i gave this patient verbal and written discharge orders along with 1Rx and 3 e-scripts and this patient voices yes to understanding these. at time of discharge this patient voices no concerns, needs and shows no signs of distress
--- NOTE | 2025-07-27 09:48 | PC.NURSE ---
07/27/25: URINE CULTURE NEGATIVE FOR GROWTH
== END 2025-07-23 22:13 | disposition home or self-care (01) ==
PROVIDERS: Physician Assistant; Emergency Provider Emergency Medicine
DX: R10.11 Right upper quadrant pain (principal); R10.A1 Flank pain, right side; Z90.49 Acquired absence of other specified parts of digestive tract
CPT/HCPCS: 36415; 80053; 81001; 83690; 83735; 84703; 85025; 87086; 96361; 96374; 96375; 99284; J2405; J3010